=== PATIENT | female | born 1980 | race African-American/Black ===

== ENCOUNTER 2016-09-06 16:26 | Emergency (ER) | payer SELFPAY ==
--- NOTE | 2016-09-06 17:06 | Emergency Department Report ---
Chief Complaint: Abdominal Pain Stated Complaint: ABDOMINAL PAIN Time Seen by Provider: 09/06/16 17:02 - HPI History of Present Illness: 35 y/o female complain of abdominal pain x 10 hours .pt state pain is worse on the left side .pt denies any difficulty urination .pt denies any n/v/d. pt denies any prior treatment . - ROS Review of Systems: per HPI - Exam Vital Signs: Vital Signs 09/06/16 16:34 Temperature 98.6 F Pulse Rate 74 Respiratory 24 Rate Blood Pressure 114/84 O2 Sat by Pulse 100 Oximetry Physical Exam: GENERAL: The patient is well-developed and well-nourished. Patient is in NAD. HENT: Normocephalic. Atraumatic. Patient has moist mucous membranes. Throat: No erythema, swelling or exudates. EYES: Extraocular motions are intact, PERRL NECK: Supple. No meningitic signs are noted. There is no adenopathy noted. CHEST/LUNGS: Clear to auscultation bilaterally. No wheezing, rales or rhonchi noted. There is no respiratory distress noted. HEART/CARDIOVASCULAR: Regular rate and rhythm. Normal S1 S2. No murmurs, rubs , clicks, or gallops. ABDOMEN: Abdomen is soft, nontender.. Bowel sounds normoactive. There is no abdominal distention. Negative rebound tenderness. : Deferred. SKIN: There is no rash. There is no edema. There is no diaphoresis. NEURO: The patient is A&Ox3. The patient has no focal neurologic deficits. MUSCULOSKELETAL: There is no tenderness or deformity. There is no limitation range of motion. PSYCH: Pt has appropriate mood and affect. MSE screening note: Focused history and physical exam performed. Due to findings the following was ordered: ED Disposition for MSE Condition: Stable Instructions: Abdominal Pain (ED)
[2016-09-06 17:35] LABS: Basophils % (Auto) 0.5 % (0.0-1.8); Eosinophils % (Auto) 0.1 % (0.0-4.3); Hemoglobin 10.4 gm/dl (10.1-14.3); Mean Corpuscular HGB Conc 32 % (30-34); Mean Corpuscular Volume 73 fl (79-97); Platelet Count 266 K/mm3 (140-440); Red Blood Count 4.54 M/mm3 (3.65-5.03); Red Cell Distribution Width 19.5 % (13.2-15.2); White Blood Count 10.1 K/mm3 (4.5-11.0)
[2016-09-06 17:48] LABS: Anion Gap 19 mmol/L; BUN/Creatinine Ratio 21.66; Blood Urea Nitrogen 13 mg/dL (7-17); Calcium 9.2 mg/dL (8.4-10.2); Carbon Dioxide 22 mmol/L (22-30); Chloride 99.9 mmol/L (98-107); Glucose 102 mg/dL (65-100); Lipase 26 units/L (13-60); Potassium 3.9 mmol/L (3.6-5.0); Sodium 137 mmol/L (137-145)
[2016-09-06 17:49] LABS: Mean Corpuscular Hemoglobin 23 pg (28-32)
[2016-09-07] MEDS ORDERED: NORCO 5/325 PO ONE (01:49)
--- NOTE | 2016-09-07 01:59 | Emergency Department Report ---
ED Abdominal Pain HPI - General Chief Complaint: Abdominal Pain Stated Complaint: ABDOMINAL PAIN Time Seen by Provider: 09/07/16 01:40 Source: patient Mode of arrival: Ambulatory Limitations: Language Barrier - History of Present Illness Initial Comments: 35-year-old female presents to the emergency department complaining of left lower abdominal pain beginning approximately 10 hours prior to arrival. Patient is unable to describe the quality of the pain. Pain does not radiate. She reports the pain is intermittent. She denies associated fever, nausea, vomiting, or diarrhea. She also denies vaginal bleeding or vaginal discharge. There are no other complaints. MD Complaint: abdominal pain -: Gradual, This morning Location: LLQ Radiation: none Migration to: no migration Severity scale (0 -10): 8 Consistency: intermittent Improves With: nothing Worsens With: nothing Associated Symptoms: denies other symptoms - Related Data Previous Rx's Medication Instructions Recorded Last Taken Type HYDROcodone/APAP 5-325 [[place] 1 each PO Q6HR PRN #20 tablet 09/07/16 Unknown Rx 5/325] Allergies Allergy/AdvReac Type Severity Reaction Status Date / Time No Known Allergies Allergy Verified 09/07/16 02:26 ED Review of Systems ROS: Stated complaint: ABDOMINAL PAIN Other details as noted in HPI Comment: All other systems reviewed and negative Gastrointestinal: abdominal pain ED Past Medical Hx - Past Medical History Previous Medical History?: No - Surgical History Past Surgical History?: Yes Additional Surgical History: section - Family History Family history: no significant - Social History Smoking Status: Never Smoker Substance Use Type: None - Medications Home Medications: Home Medications Medication Instructions Recorded Confirmed Last Taken Type HYDROcodone/APAP 5-325 [[place] 1 each PO Q6HR PRN #20 tablet 09/07/16 Unknown Rx 5/325] ED Physical Exam - General Limitations: Language Barrier General appearance: alert, in no apparent distress - Head Head exam: Present: atraumatic, normocephalic - Eye Eye exam: Present: normal appearance, PERRL, EOMI - ENT ENT exam: Present: normal exam, normal orophraynx, mucous membranes moist - Neck Neck exam: Present: normal inspection, full ROM. Absent: tenderness - Respiratory Respiratory exam: Present: normal lung sounds bilaterally. Absent: respiratory distress - Cardiovascular Cardiovascular Exam: Present: regular rate, normal rhythm, normal heart sounds - GI/Abdominal GI/Abdominal exam: Present: soft, tenderness (moderate tenderness to palpation left lower quadrant), normal bowel sounds. Absent: distended, guarding, rebound - Extremities Exam Extremities exam: Present: normal inspection, full ROM. Absent: tenderness - Back Exam Back exam: Present: normal inspection, full ROM. Absent: tenderness - Neurological Exam Neurological exam: Present: alert, oriented X3. Absent: motor sensory deficit - Skin Skin exam: Present: warm, dry, intact ED Course Vital Signs 09/06/16 16:34 Temperature 98.6 F Pulse Rate 74 Respiratory 24 Rate Blood Pressure 114/84 O2 Sat by Pulse 100 Oximetry ED Medical Decision Making - Lab Data Result diagrams: 09/06/16 17:19 09/06/16 17:19 - Medical Decision Making Laboratory results reviewed and discussed with the patient. Patient reports feeling better with medication. Patient will be discharged home at this time. - Differential Diagnosis abdominal pain, UTI, ovarian cyst, ectopic Critical care attestation.: If time is entered above; I have spent that time in minutes in the direct care of this critically ill patient, excluding procedure time. ED Disposition Clinical Impression: Abdominal pain Qualifiers: Abdominal location: left lower quadrant Qualified Code(s): R10.32 - Left lower quadrant pain Disposition: DISCHARGED TO HOME OR SELFCARE Is pt being admited?: No Condition: Stable Instructions: Abdominal Pain (ED) Prescriptions: HYDROcodone/APAP 5-325 [[place] 5/325] 1 each PO Q6HR PRN #20 tablet PRN Reason: Pain Referrals: PRIMARY CARE, [Primary Care Provider] - 3-5 Days Time of Disposition: 02:32
[2016-09-07 02:02] LABS: Bilirubin,Urine NEG (Negative); Blood,Urine SM (Negative); Ketones,Urine NEG (Negative); Leukocyte Esterase,Urine NEG (Negative); Nitrite,Urine NEG (Negative); Protein,Urine <15 mg/dL mg/dL (Negative); Urobilinogen,Urine < 2.0 mg/dL (<2.0); WBC,Urine < 1.0 /HPF (0.0-6.0)
[2016-09-07 03:10] VITALS: BP 116/78
== END 2016-09-07 02:58 | disposition home or self-care (01) ==
LOC: ED 16:26
DX: R10.32 Left lower quadrant pain (principal)
CPT/HCPCS: 36415; 80048; 81001; 81025; 83690; 85025